=== PATIENT | female | born 1960 | race Caucasian/White ===

== ENCOUNTER → 2017-04-16 | Outpatient (CLI) | payer OTHER ==
--- NOTE | 2017-04-19 08:06 | BD ---
EXAMINATION TYPE: MG DEXA axial skeleton. DATE OF EXAM: 04/16/2017 COMPARISON: NONE CLINICAL HISTORY: 56-year-old female ICD10 CODE: Z13.820 SCREENING Height: 64.5 Weight: 177 FRAX RISK QUESTIONS: Alcohol (3 or more units per day): NO Family History (Parent hip fracture): NO Glucocorticoids (More than 3mos): NO (Ex: prednisone, prednisolone, methylprednisolone, dexamethasone, and hydrocortisone). History of Fracture in Adulthood: NO Secondary Osteoporosis: NO 1. Type 1 Diabetes: NO 2. Hyperthyroidism: NO 3. Menopause before 45: NO 4. Malnutrition: NO 5. Chronic liver disease: NO Rheumatoid Arthritis: NO Current Tobacco Use: NO RISK FACTORS HISTORY OF: Family History of Osteoporosis: NONE KNOWN Active: YES Diet low in dairy products/other sources of calcium: NO Postmenopausal woman: YES AT 50 Hyperparathyroidism: NO Adrenal Insufficiency: NO MEDICATIONS: Additional Medications: VITAMIN, AND SINUS MEDS Additional History: HX OF LOW IRON EXAM MEASUREMENTS: Bone mineral densitometry was performed using the [employer] System. Bone mineral density as measured about the Lumbar spine is: ----- L1-L4(G/cm2): 1.160 T Score Values are as follows: ----- L1: -0.9 ----- L2: -0.1 ----- L3: -0.1 ----- L4: 0.2 ----- L1-L4: -0.2 Bone mineral density THIS IS HER FIRST BONE DENSITY TEST.....BASELINE STUDY Bone mineral density about the R hip (g/cm2): 0.933 Bone mineral density about the L hip (g/cm2): 0.961 T Score values are as follows: -----R Neck: -2.0 -----L Neck: -1.5 -----R Total: -0.6 -----L Total: -0.4 Bone mineral density BASELINE STUDY FRAX%'S: THERE IS A 8.8% CHANCE OF A MAJOR OSTEOPOROTIC FX AND A 1.1% OF HIP FX.....PROBABILITY OF FX IN 10 YRS TIME IMPRESSION: Osteopenia (T Score between -2.5 and -1 as noted by T score values There is slightly increased risk of fracture and the patient may be considered for treatment. Re-Screen 2-5 years. NOTE: T-SCORE=SD OF THE YOUNG ADULT MEAN.
--- NOTE | 2017-04-19 09:53 | MM ---
Reason for exam: screening (asymptomatic). Last mammogram was performed 3 years and 1 month ago. History: Patient is postmenopausal. Took hormonal contraceptives for 8 years beginning at age 16. Physical Findings: A clinical breast exam by your physician is recommended on an annual basis and results should be correlated with mammographic findings. MG 3D Screening Mammo W/Cad Bilateral CC and MLO view(s) were taken. Prior study comparison: March 28, 2014, bilateral MG screening mammo w CAD. February 03, 2012, bilateral digital screening mammo w/CAD. The breast tissue is heterogeneously dense. This may lower the sensitivity of mammography. There is no discrete abnormality. No significant changes when compared with prior studies. ASSESSMENT: Negative, BI-RAD 1 RECOMMENDATION: Routine screening mammogram of both breasts in 1 year.
== END | disposition home or self-care (01) ==
LOC: RADMAMWWP 15:16
PROVIDERS: ATTEND Obstetrics & Gynecology
DX: Z12.31 Encounter for screening mammogram for malignant neoplasm of breast (principal); Z13.820 Encounter for screening for osteoporosis; M85.80 Other specified disorders of bone density and structure, unspecified site
CPT/HCPCS: 77080; 77063; G0202

== ENCOUNTER → 2018-02-10 | Outpatient (CLI) | payer OTHER ==
--- NOTE | 2018-02-10 17:23 | CT ---
EXAMINATION TYPE: CT soft tissue neck w con DATE OF EXAM: 02/10/2018 COMPARISON: None HISTORY: 57-year-old female right throat and neck swelling, SENSATION OF THROAT FULLNESS/PAIN TECHNIQUE: Contiguous axial scanning of the soft tissues of the neck performed with IV Contrast, stefania ent injected with 100 mL of Isovue 300. Delayed images through the kidneys were obtained. Coronal/sag ittal reconstructions performed. CT DLP: 590 mGycm Automated exposure control for dose reduction was used. FINDINGS: Visualized intracranial structures show either an old lacunar infarct or prominent perivascular space in the left basal ganglia. Paranasal sinuses, orbits and globes, and mastoid air cells are clear. Nasopharynx is clear. There is slight nodularity along the anterior margin of the right epiglottis measuring 7 mm encroachi ng onto the vallecular space, refer to axial image 46. Relatively large, 7 mm calcification in the right palatine tonsil. Oropharynx otherwise clear. The epiglottis and prevertebral soft tissues are within normal limits. The glottic and subglottic airway as well as the tracheal column and visualized upper lungs appear cl ear. 4 mm hypodense nodule upper pole right thyroid lobe. The submandibular and parotid glands appear satisfactory. Scattered nonenlarged lymph nodes seen within the upper neck measuring up to 8 mm. No cervical lympha denopathy. Bones: Moderate disc sufficiently degenerative change mid to lower cervical spine. IMPRESSION: 1. RELATIVELY LARGE, 7 MM RIGHT PALATINE TONSILLOLITH. CORRELATE TO IF THIS COULD BE CONTRIBUTING TO THE PATIENT'S SYMPTOMS. 2. 7 MM NODULARITY ALONG THE ANTERIOR SURFACE OF THE RIGHT PARASAGITTAL EPIGLOTTIS. SOME POSSIBILITIE S INCLUDE POLYP, PAPILLOMA, MUCOSAL RETENTION CYST, GRANULOMATOUS DISEASE, ETC. CORRELATE WITH DIRECT VISUALIZATION.
== END | disposition home or self-care (01) ==
LOC: RADCTMAIN 15:49
PROVIDERS: ATTEND Otolaryngology
DX: J35.8 Other chronic diseases of tonsils and adenoids (principal); J38.7 Other diseases of larynx; R07.1 Chest pain on breathing
CPT/HCPCS: 70491; Q9967

== ENCOUNTER → 2020-10-21 | Outpatient (CLI) | payer OTHER ==
--- NOTE | 2020-10-21 17:08 | BD ---
EXAMINATION TYPE: Axial Bone Density DATE OF EXAM: 10/21/2020 COMPARISON: 04/16/2017 CLINICAL HISTORY: Postmenopausal female Height: 642 IN Weight: 185 LBS RISK FACTORS HISTORY OF: History of Wrist Fracture: YES RT WRIST AGE 14 Active: YES Postmenopausal woman: AGE 49 Take estrogen and/or progesterone medications: TOOK CONTROL FROM AGE [age] MEDICATIONS: Additional Medications: Multivitamin EXAM MEASUREMENTS: Bone mineral densitometry was performed using the [employer] System. Bone mineral density as measured about the Lumbar spine is: ----- L1-L4(G/cm2): 1.139 T Score Values are as follows: ----- L2: -0.4 ----- L3: -0.2 ----- L4: 0.3 ----- L1-L4: -0.3 Bone mineral density has: Decreased -0.7% since study of: 04/16/2017 Bone mineral density about the R hip (g/cm2): 0.746 Bone mineral density about the L hip (g/cm2): 0.807 T Score values are as follows: -----R Neck: -2.1 -----L Neck: -1.7 -----R Total: -1.0 -----L Total: -0.6 Bone mineral density has: Decreased -4.5% since study of: 04/16/2017 IMPRESSION: Bone mineral density is within lower normal limits. Bone mineral density has decreased 4.5% since 03/2017. NOTE: T-SCORE=SD OF THE YOUNG ADULT MEAN.
--- NOTE | 2020-10-22 08:10 | MM ---
Reason for exam: screening (asymptomatic). Last mammogram was performed 3 years and 6 months ago. History: Patient is postmenopausal. Family history of breast cancer in sister at age 64. Took hormonal contraceptives for 8 years beginning at age 16. Physical Findings: A clinical breast exam by your physician is recommended on an annual basis and results should be correlated with mammographic findings. MG 3D Screening Mammo W/Cad Bilateral CC and MLO view(s) were taken. Prior study comparison: April 16, 2017, bilateral MG 3d screening mammo w/cad. March 28, 2014, bilateral MG screening mammo w CAD. The breast tissue is heterogeneously dense. This may lower the sensitivity of mammography. There is no discrete abnormality. ASSESSMENT: Negative, BI-RAD 1 RECOMMENDATION: Routine screening mammogram of both breasts in 1 year.
== END | disposition home or self-care (01) ==
LOC: RADBDWWP 12:36
PROVIDERS: ATTEND Obstetrics & Gynecology
DX: Z12.31 Encounter for screening mammogram for malignant neoplasm of breast (principal); Z78.0 Asymptomatic menopausal state; Z80.3 Family history of malignant neoplasm of breast
CPT/HCPCS: 77063; 77067; 77080

== ENCOUNTER → 2021-08-13 | Outpatient (CLI) | payer OTHER ==
--- NOTE | 2021-08-14 08:00 | XR ---
EXAMINATION TYPE: XR shoulder complete LT DATE OF EXAM: 08/13/2021 COMPARISON: None available INDICATION: 60-year-old female, pain TECHNIQUE: Standard 3 views of the left shoulder FINDINGS: Questionable mild degenerative changes of the acromioclavicular joint. Unremarkable glenohumeral yohannes culation. No humeral head dislocation or significant subluxation. No definite acute fracture line identified. No signs of rotator cuff calcific tendinitis. Maintained acromiohumeral distance. IMPRESSION: No acute fracture or dislocation.
== END | disposition home or self-care (01) ==
LOC: RADXRMAIN 16:47
PROVIDERS: ATTEND Family Medicine
DX: M25.512 Pain in left shoulder (principal)

== ENCOUNTER 2021-11-14 06:38 | Day surgery (SDC) | payer OTHER ==
[2021-11-12 09:21] VITALS: BMI 29.8
[~2021-11-14 06:38] MED LIST: LACTATED RINGERS 1,000 ML IV SCH
[2021-11-14 07:04] VITALS: RESP 18; TEMP 97.2
[2021-11-14] MEDS ORDERED: fentaNYL (PF) 50 MCG/ML 2 ML AMP ONE (07:39)
[2021-11-14] MEDS ORDERED: MIDAZOLAM 2 MG/2 ML VIAL ONE (07:39)
[2021-11-14] MEDS ORDERED: PROPOFOL 10 MG/ML 20 ML VIAL IV ONE (07:39)
--- NOTE | 2021-11-14 07:43 | P.HPIHPCON ---
History of Present Illness H&P Date: 11/14/21 60-year-old female presents today for screening colonoscopy. She has never had a colonoscopy previously. She denies any blood in her stool. She denies any family history of colon cancer. Denies any family history of inflammatory bowel disease. Consent for Procedure: I have explained the operation/procedure to the patient, including the risks, benefits, side effects, alternative therapies (including not receiving the proposed treatment or service), the likelihood of the patient achieving his/her goals, and potential recuperation problems for the procedure/sedation/analgesia, as well as any blood products, if indicated. I also explained to the patient the risks, benefits and side effects of the alternatives, as well as the risks related to not receiving the proposed procedure, care, treatment, or services. - Review of Systems All systems: negative Past Medical History Past Medical History: Hyperlipidemia, Hypertension History of Any Multi-Drug Resistant Organisms: None Reported Past Surgical History: Tubal Ligation Past Anesthesia/Blood Transfusion Reactions: No Reported Reaction Smoking Status: Never smoker - Past Family History Mother Family Medical History: No Reported History Medications and Allergies Home Medications Medication Instructions Recorded Confirmed Type Rosuvastatin [Crestor] 10 mg PO HS 11/12/21 11/14/21 History amLODIPine BESYLATE/BENAZEPRIL 1 each PO 11/12/21 11/14/21 History [Lotrel 5-10 mg Capsule] Allergies Allergy/AdvReac Type Severity Reaction Status Date / Time No Known Allergies Allergy Verified 11/14/21 06:58 Surgical - Exam Osteopathic Statement: *. No significant issues noted on an osteopathic structural exam other than those noted in the History and Physical/Consult. Vital Signs Temp Pulse Resp BP Pulse Ox 97.2 F L 71 18 130/69 98 11/14/21 06:57 11/14/21 06:57 11/14/21 06:57 11/14/21 06:57 11/14/21 06:57 - General no distress - Eyes normal ocular movement - Respiratory normal respiratory effort - Abdomen Abdomen: soft, non tender - Psychiatric oriented to time, oriented to person, oriented to place Assessment and Plan Plan: 60-year-old female presents for screening colonoscopy. Risks, benefits and alternatives were provided. Further recommendations to be made after procedure.
--- NOTE | 2021-11-14 08:03 | P.PCN ---
Date of Procedure: 11/14/21 Preoperative Diagnosis: Screening Postoperative Diagnosis: Internal hemorrhoids Procedure(s) Performed: Colonoscopy Anesthesia: MAC Surgeon: Vivian Klein Pathology: none sent Condition: stable Disposition: same day Indications for Procedure: 60-year-old female presents for screening colonoscopy. She is never had a colonoscopy previously. She denies any blood in her stool. Denies any family history of colon cancer. Operative Findings: Overall, normal-appearing colon. Internal hemorrhoids Description of Procedure: The patient was brought into the endoscopy suite and placed in left lateral decubitus position and adequate sedation was achieved using conscious sedation. A digital rectal exam was performed and mild internal hemorrhoids were palpated. An endoscope was then placed in the rectum and advanced to the cecum as identified by landmarks including the appendiceal orifice and the ileocecal valve. The prep was good. The colonoscope was then slowly withdrawn, examining for any mucosal abnormality. The cecum, ascending, transverse, descending and sigmoid colon were visualized adequately. There were no large neoplastic lesions throughout the colon. There is no obvious polyps noted throughout the colon. There is no evidence of diverticulosis. Retroflexion was performed in the rectum and internal hemorrhoids were visible. Excess air was removed, the colonoscope withdrawn and the procedure terminated. The patient was then transferred to the recovery unit in stable condition. Repeat colonoscopy should be performed in 10 years.
[2021-11-14 08:04] VITALS: BP 109/72; PULSE 59
== END 2021-11-14 08:40 | disposition home or self-care (01) ==
LOC: ORWHC2ENDO 06:38
PROVIDERS: ATTEND Surgery
DX: Z12.11 Encounter for screening for malignant neoplasm of colon (principal); K64.8 Other hemorrhoids; E78.5 Hyperlipidemia, unspecified; I10 Essential (primary) hypertension; Z98.51 Tubal ligation status; Z79.899 Other long term (current) drug therapy
CPT/HCPCS: 45378; J2250; J3010; J2704

== ENCOUNTER → 2022-10-26 | Outpatient (CLI) | payer OTHER ==
--- NOTE | 2022-10-26 22:48 | BD ---
EXAMINATION TYPE: Axial Bone Density DATE OF EXAM: 10/26/2022 CLINICAL HISTORY: 61 years old Female. ICD-10 CODE: M85.88 DISORDER OF BONE Height: 64.5 Weight: 191 FRAX RISK QUESTIONS: Alcohol (3 or more units per day): no Family History (Parent hip fracture): no Glucocorticoids (More than 3mos): no History of Fracture in Adulthood: no Secondary Osteoporosis: 1. Type 1 Diabetes: no 2. Hyperthyroidism: no 3. Menopause before 45: no 4. Malnutrition: no 5. Chronic liver disease: no Rheumatoid Arthritis: no Current Tobacco Use: no RISK FACTORS HISTORY OF: Hip Fracture (Right/Left): no When: Spine Fracture: no When: History of Wrist Fracture: rt wrist When: age 12 Surgery to Spine/Hip(right/left)/Wrist (right/left): no Family History of Osteoporosis: no Active: yes Diet low in dairy products/other sources of calcium: no Postmenopausal woman: yes Take estrogen and/or progesterone medications: no Lost more than 2 inches in height since high school: no Frequent falls: no Poor Health: no Hyperparathyroidism: no Adrenal Insufficiency: no MEDICATIONS: Prednisone or other steroids: no Thyroid Medications: no Osteoporosis Medications: no Additional Medications: Cholesterol Meds, Calcium, Blood Pressure Meds, Multi Vit., Additional History: EXAM MEASUREMENTS: Bone mineral densitometry was performed using the [employer] System. Bone mineral density as measured about the Lumbar spine is: ----- L1-L4(G/cm2): 1.170 T Score Values are as follows: ----- L1: -0.6 ----- L2: 0.0 ----- L3: -0.2 ----- L4: 0.2 ----- L1-L4: -0.1 Z Score Values are as follows: ----- L1: 0.2 ----- L2: 0.8 ----- L3: 0.6 ----- L4: 1.0 ----- L1-L4: 0.7 Bone mineral density has: increased 2.7 % since study of: 10/21/2020 Bone mineral density about the R hip (g/cm2): 0.907 Bone mineral density about the L hip (g/cm2): 0.920 T Score values are as follows: -----R Neck: -2.2 -----L Neck: -1.9 -----R Total: -0.8 -----L Total: -0.7 Z Score values are as follows: -----R Neck: -1.3 -----L Neck: -0.9 -----R Total: -0.2 -----L Total: -0.1 Bone mineral density has: increased 1.0 % since study of: 10/21/2020 FRAX%s: The graph provided illustrates a 10.9% chance for a major osteoporotic fx and a 1.8% chance f or the hips probability for fx in 10 years time. IMPRESSION: Osteopenia (T Score between -2.5 and -1). There is slightly increased risk of fracture and the patient may be considered for treatment. Re-Screen 2-5 years. NOTE: T-SCORE=SD OF THE YOUNG ADULT MEAN.
--- NOTE | 2022-10-27 19:52 | MM ---
Reason for Exam: Screening (asymptomatic). Last mammogram was performed 2 year(s) and 0 month(s) ago. Patient History: Menarche at age 11. First Full-Term at age 22. Postmenopausal. Hormonal Contraceptives for 8 years from age 16 until age 28. Sister had breast cancer, age 64. Risk Values: Antoinette 5 year model risk: 3.0%. NCI Lifetime model risk: 12.4%. Prior Study Comparison: 03/28/2014 Bilateral Screening Mammogram, [facility]. 04/16/2017 Bilateral Screening Mammogram, [facility]. 10/21/2020 Bilateral Screening Mammogram, [facility]. Tissue Density: The breast tissue is heterogeneously dense. This may lower the sensitivity of mammography. Findings: Analyzed By CAD. There is no suspicious group of microcalcifications or new suspicious mass in either breast. Overall Assessment: Negative, BI-RAD 1 Management: Screening Mammogram of both breasts in 1 year. See note below in regards to patient's increased 5 year Antoinette score. Patient should continue monthly self-breast exams. A clinical breast exam by your physician is recommended on an annual basis. This exam should not preclude additional follow-up of suspicious palpable abnormalities. Note on Antoinette scores and lifetime risk: 1. A Antoinette score greater than 3% is considered moderate risk. If this is the case, consider specialist referral to assess eligibility for a risk reducing agent. 2. If overall lifetime risk for the development of breast cancer is 20% or higher, the patient may qualify for future screening with alternating mammogram and breast MRI. Electronically signed and approved by: Barbra Cosby M.D. Radiologist
== END | disposition home or self-care (01) ==
LOC: RADMAMWWP 15:39
PROVIDERS: ATTEND Obstetrics & Gynecology
DX: Z12.31 Encounter for screening mammogram for malignant neoplasm of breast (principal); M85.89 Other specified disorders of bone density and structure, multiple sites; Z78.0 Asymptomatic menopausal state
CPT/HCPCS: 77063; 77067; 77080

== ENCOUNTER → 2024-01-06 | Outpatient (CLI) | payer MEDICARE ==
--- NOTE | 2024-02-01 12:19 | MM ---
Reason for Exam: Screening (asymptomatic). Last mammogram was performed 1 year(s) and 3 month(s) ago. Patient History: Menarche at age 11. First Full-Term at age 22. Postmenopausal. Hormonal Contraceptives for 8 years from age 16 until age 28. Sister had breast cancer, age 64. Risk Values: Antoinette 5 year model risk: 3.2%. NCI Lifetime model risk: 11.7%. Prior Study Comparison: 04/16/2017 Bilateral Screening Mammogram, [facility]. 10/21/2020 Bilateral Screening Mammogram, [facility]. 10/26/2022 Bilateral MG 3D screening mammo w/cad, [facility]. Tissue Density: The breasts are heterogeneously dense, which may obscure small masses. Findings: Analyzed By CAD. There is no suspicious group of microcalcifications or new suspicious mass in either breast. Overall Assessment: Negative, BI-RAD 1 Management: Screening Mammogram of both breasts in 1 year. Patient should continue monthly self-breast exams. A clinical breast exam by your physician is recommended on an annual basis. This exam should not preclude additional follow-up of suspicious palpable abnormalities. Note on Antoinette scores and lifetime risk: 1. A Antoinette score greater than 3% is considered moderate risk. If this is the case, consider specialist referral to assess eligibility for a risk reducing agent. 2. If overall lifetime risk for the development of breast cancer is 20% or higher, the patient may qualify for future screening with alternating mammogram and breast MRI. Electronically signed and approved by: Nasir Zimmerman M.D. Radiologis
== END | disposition home or self-care (01) ==
LOC: RADMAMWWP 08:56
PROVIDERS: ATTEND Family Medicine
DX: Z12.31 Encounter for screening mammogram for malignant neoplasm of breast (principal); R92.333 Mammographic heterogeneous density, bilateral breasts; Z78.0 Asymptomatic menopausal state; Z80.3 Family history of malignant neoplasm of breast
CPT/HCPCS: 77063; 77067